=== PATIENT | female | born 1995 | race Caucasian/White ===

== ENCOUNTER 2018-12-15 14:02 | Emergency (ER) | payer MEDICAID ==
[~2018-12-15] VITALS: Ht 167.6 cm; Wt 95.5 kg
[2018-12-15 14:15] VITALS: BP 143/81; PULSE 87; TEMP 98.9
[2018-12-15] MEDS ORDERED: CELEXA 20MG20 MG/TAB PO (14:33)
[2018-12-15] MEDS ORDERED: FLEXERIL 1010 MG/TAB PO (16:05)
== END 2018-12-15 16:10 | disposition home or self-care (01) ==
LOC: COL.ER 14:02
DX: T76.21XA Adult sexual abuse, suspected, initial encounter (principal); F32.9 Major depressive disorder, single episode, unspecified

== ENCOUNTER 2018-12-15 15:11 | Outpatient (CLI) | payer MEDICAID ==
[~2018-12-15 15:11] MED LIST changes: -FLEXERIL 1010 MG/TAB PO
[2018-12-15] MEDS ORDERED: FLEXERIL 1010 MG/TAB PO (16:05)
== END 2018-12-15 19:30 | disposition home or self-care (01) ==
LOC: LDRO 15:11 → LDR 16:01 → LDRO 19:30
DX: Z04.41 Encounter for examination and observation following alleged adult rape (principal)
CPT/HCPCS: OP; J0696

== ENCOUNTER → 2018-12-15 | Outpatient (REF) ==
[~2018-12-15] MED LIST: CELEXA 20MG20 MG/TAB PO; FLEXERIL 1010 MG/TAB PO
== END ==
LOC: LDRO 15:15
DX: Z04.41 Encounter for examination and observation following alleged adult rape (principal)